=== PATIENT | male | born 1945 | race Caucasian/White ===

== ENCOUNTER 2016-12-16 02:23 | Emergency (ER) | payer MEDICARE ==
[2016-12-16] MEDS ORDERED: LORazepam 2 MG/ML VIAL ONE (02:47)
[2016-12-16] MEDS ORDERED: LORazepam 2 MG/ML VIAL IVP ONE (02:49)
[2016-12-16] MEDS ORDERED: LORazepam 1 MG TABLET PO ONE (03:11)
--- NOTE | 2016-12-16 03:17 | ED Physician Documentation ---
General Adult - HISTORIAN Historian: patient, spouse - HPI Stated Complaint: ANXIETY Chief Complaint: General Adult Additional Information: pt unable to sleep bp elevated quite nervous. worried about foot. had recent surgery on foot and 'I watched that ball game-it went extra innings' and that got me un-nerved bp now better Onset: hours (2-3 hrs ago prog worse) Timing: still present, better Severity: moderate - ROS CONST: no problems. denies: fever, sweating, recent illness EYES/ENT: denies: problems with vision CVS/RESP: other (pt has hx at fib-on meds) GI/: none (takes meds for constipation) MS/SKIN/LYMPH: none NEURO/PSYCH: denies: headache, fainting, dizziness - PAST HX Past History: A-Fib, hypertension (gerd) Surgeries/Procedures: other (recently on rt great toe for hammer toe knee wrist) Allergies/Adverse Reactions: Allergies Allergy/AdvReac Type Severity Reaction Status Date / Time No Known Allergies Allergy Verified 12/16/16 02:33 Home Medications: Ambulatory Orders Medication Instructions Recorded Apixaban [Eliquis] 5 mg D 12/16/16 Gabapentin [Neurontin] 300 mg D 12/16/16 Lovastatin [Lovastatin] 40 mg D 12/16/16 Magnesium Oxide [Magnesium] 400 mg D 12/16/16 Metoprolol Tartrate [Lopressor] 50 mg D 12/16/16 Multivit-Min/FA/Lycopene/Lut 1 each PO D 12/16/16 [Centrum Silver Tablet] Omeprazole [Omeprazole] 20 mg D 12/16/16 Polyethylene Glycol 3350 [Miralax] 1 each D 12/16/16 - SOCIAL HX Smoking History: non-smoker Alcohol Use: none Drug Use: none - FAMILY HX Family History: No - VITAL SIGNS Vital Signs: Vital Signs Temp Pulse Resp BP Pulse Ox 98.4 F 64 24 167/91 98 12/16/16 02:30 12/16/16 02:30 12/16/16 02:30 12/16/16 02:30 12/16/16 02:30 - REVIEWED ASSESSMENTS Nursing Assessment Reviewed: Yes Vitals Reviewed: Yes Progress - Results/Orders Results/Orders: [id number] pt no drifting off to sleep- awakens easily then back to sleepo again. / bp now controlled pat states feeling ok now. will sent home w/extra 1 mg ativan if does not sleep when gets home. at fib fairly regular. ED Results Lab/Radiology - Orders Orders: ED Orders Category Date Time Status LORazepam [Ativan] Med 12/16/16 02:49 Once 1 mg IVP NOW ONE LORazepam [Ativan] Med 12/16/16 02:47 Discontinued 2 mg .ROUTE .STK-MED ONE General Adult Physical Exam - PHYSICAL EXAM GENERAL APPEARANCE: moderate distress EENT: eye inspection normal NECK: normal inspection, thyroid normal. No: carotid bruit RESPIRATORY: no resp distress, chest non-tender, breath sounds normal CVS: No: reg rate & rhythm NEURO: oriented X3, motor nml, sensation nml, mood/affect nml Discharge Clincal Impression: anxiety reaction, recent foot surgery Home Medications: Ambulatory Orders Apixaban [Eliquis] 5 mg D 12/16/16 Gabapentin [Neurontin] 300 mg D 12/16/16 Lovastatin [Lovastatin] 40 mg D 12/16/16 Magnesium Oxide [Magnesium] 400 mg D 12/16/16 Metoprolol Tartrate [Lopressor] 50 mg D 12/16/16 Multivit-Min/FA/Lycopene/Lut [Centrum Silver Tablet] 1 each PO D 12/16/16 Omeprazole [Omeprazole] 20 mg D 12/16/16 Polyethylene Glycol 3350 [Miralax] 1 each D 12/16/16 Comments: home improved Condition: Good Disposition: 01 HOME, SELF-CARE Decision to Admit: NO Decision Time: 03:16
[2016-12-16 03:24] VITALS: BP 128/82
== END 2016-12-16 03:24 | disposition home or self-care (01) ==
LOC: ED 02:23
DX: F41.9 Anxiety disorder, unspecified (principal)
CPT/HCPCS: J2060 ×2; 96374; 96376; 99283; S1016

== ENCOUNTER 2017-06-12 16:47 | Emergency (ER) | payer MEDICARE, OTHER ==
[2017-06-12] MEDS ORDERED: DIPH,PERTUSS(ACELL),TET VAC/PF 0.5 ML DISP.SYRIN IM ONE (17:39)
--- NOTE | 2017-06-12 17:46 | ED Physician Documentation ---
General Adult - HISTORIAN Historian: patient, friend - HPI Stated Complaint: laceration Chief Complaint: Laceration/Recheck/Suture Additional Information: 1cm lac distal lt 5th finger on tin can while opening it. occ approx 1445 Timing: still present (bled profusely but stopped now pt on eliquis for at fib) Severity: mild Further Comments: yes (pt prefers dermabond if satis) - ROS CONST: no problems EYES/ENT: none CVS/RESP: none GI/: none MS/SKIN/LYMPH: none - PAST HX Past History: A-Fib, hypertension Surgeries/Procedures: other (knee3) Immunizations: denies: UTD Allergies/Adverse Reactions: Allergies Allergy/AdvReac Type Severity Reaction Status Date / Time No Known Allergies Allergy Verified 06/12/17 16:59 Home Medications: Ambulatory Orders Medication Instructions Recorded Apixaban [Eliquis] 5 mg BID 12/16/16 Lovastatin [Lovastatin] 40 mg PM 12/16/16 Metoprolol Tartrate [Lopressor] 50 mg PO BID 12/16/16 Multivit-Min/FA/Lycopene/Lut 1 each PO D 12/16/16 [Centrum Silver Tablet] Omeprazole [Omeprazole] 20 mg D 12/16/16 Escitalopram Oxalate [Lexapro] 5 mg PO DAILY 06/12/17 Lisinopril [Zestril] 10 mg PO BID 06/12/17 Ropinirole HCl [Ropinirole HCl] 0.25 mg PO DAILY 06/12/17 - SOCIAL HX Smoking History: non-smoker Alcohol Use: none Drug Use: none - FAMILY HX Family History: No - VITAL SIGNS Vital Signs: Vital Signs Temp Pulse Resp BP Pulse Ox 98.3 F 84 20 158/108 94 06/12/17 16:54 06/12/17 16:54 06/12/17 16:54 06/12/17 16:54 06/12/17 16:54 - REVIEWED ASSESSMENTS Nursing Assessment Reviewed: Yes Vitals Reviewed: Yes Procedures Wound Location: upper extremity Wound Length: 1cm Wound's Depth, Shape: superficial Wound Explored: no foreign body removed Wound Repaired With: Dermabond Sterile Dressing Applied?: Yes (cleanse w/betadine sent bottle home w/p on inst keep clean dry) ED Results Lab/Radiology - Orders Orders: ED Orders Category Date Time Status Ellen Dennis([place]),Tet Vac/Pf [Adacel] Med 06/12/17 17:39 Discontinued 0.5 ml IM .ONCE ONE General Adult Physical Exam - PHYSICAL EXAM GENERAL APPEARANCE: mild distress EENT: eye inspection normal NECK: normal inspection RESPIRATORY: no resp distress, chest non-tender, breath sounds normal. No: wheezes, rales, rhonchi CVS: irregularly irregular rhy ABDOMEN: soft, non-tender SKIN: No: cyanosis, diaphoresis, jaundice EXTREMITIES: normal range of motion NEURO: oriented X3, motor nml, sensation nml, mood/affect nml Discharge Clincal Impression: laceration distal lt 5th finger Referrals: Madhu Bolton MD [Primary Care Provider] - 2 Days Condition: Good Disposition: 01 HOME, SELF-CARE Decision to Admit: NO Decision Time: 17:50
[2017-06-12 18:11] VITALS: BP 166/86
== END 2017-06-12 17:50 | disposition home or self-care (01) ==
LOC: ED 16:47
DX: S61.217A Laceration without foreign body of left little finger without damage to nail, initial encounter (principal); X58.XXXA Exposure to other specified factors, initial encounter; Y93.9 Activity, unspecified; Y99.9 Unspecified external cause status
CPT/HCPCS: 12001; 90471; 90715; 99283